=== PATIENT | female | born 1950 | race Hispanic/Latino ===

== ENCOUNTER 2017-06-29 06:02 | Day surgery (SDC) | payer MEDICARE, OTHER ==
[2015-12-05 16:20] VITALS: PULSE 78
[2017-06-28 08:41] VITALS: BMI 23.0
[2017-06-29] MEDS ORDERED: Phenylephrine 10 mg/ml Inj ONE (06:23)
[2017-06-29] MEDS ORDERED: Lidocaine 2% Inj (20ml) ONE (06:23)
[2017-06-29] MEDS ORDERED: Iodixanol 320 MG/ML 200 ML BOTTLE IV ONE (06:24)
[2017-06-29] MEDS ORDERED: Nitroglycerin 50mg in D5W 0 MG/0 ML BOTTLE IV ONE (06:24)
[2017-06-29] MEDS ORDERED: Iohexol 350mgl/ml 50 ML ONE (06:24)
[2017-06-29] MEDS ORDERED: Iodixanol 320 MG/ML 100 ML BOTTLE IV ONE (06:24)
[2017-06-29] MEDS ORDERED: Midazolam 2 MG/2 ML VIAL ONE ×2 (07:09→08:15)
[2017-06-29] MEDS ORDERED: Sodium Chloride 0.9% 1,000 ML IV SCH (09:00)
[2017-06-29 09:48] VITALS: TEMP 98.6
[2017-06-29 11:53] VITALS: BP 130/75; PULSE 82; RESP 18; O2SAT 92
--- NOTE | 2017-06-29 14:02 | CARDCATH ---
CARDIAC CATHETERIZATION REPORT PROCEDURE DATE: 06/29/2017 HISTORY: This is a 66-year-old woman with known coronary artery disease, status post prior bypass surgery, PCI, mitral regurgitation, and LV dysfunction who was advised catheterization after recent echocardiogram showed worsening LV function and severe mitral regurgitation. INDICATIONS: As above. PROCEDURES: 1. Selective left and right coronary angiography. 2. Left ventriculography. 3. Right and left heart catheterization. 4. Left subclavian arteriography. 5. Saphenous vein angiography. 6. Left internal mammary arteriography. 7. Right femoral arteriography. 8. AngioSeal deployment. FINDINGS: The right heart pressures were as follows; 1. The RV pressure was 60/6, the pulmonary artery pressure was 60/25 with a pulmonary capillary wedge pressure of 14. The cardiac output by thermodilution method was 3.0 liters per minute with cardiac index of 1.8 liters per minute per m2. 2. The aortic pressure was 110/70 with left ventricular pressure of 110/15. CORONARY ANGIOGRAPHY: 1. The left mainstem had a long 50% stenosis. 2. The left anterior descending artery is occluded proximally. 3. First diagonal branch had mild diffuse disease and was [id number] size vessel. 4. Ramus branch was occluded proximally. 5. The left circumflex artery was occluded proximally as well. 6. The right coronary artery was subtotally occluded in the midportion with evidence of faint retrograde filling. 7. The saphenous vein graft to the right coronary artery was large and patent. These had minimal irregularities within the graft. The distal vessel was large and supplied the majority of the inferolateral wall. There was no evidence of significant disease in the distal [place] vessel. 8. The saphenous vein graft to the obtuse marginal branch was noted to be occluded and was not selectively injected. 9. The left internal mammary artery to the LAD was patent with good distal run off. The [place] LAD and diagonal branches had evidence of moderate diffuse disease distally. 10. The left subclavian artery had been visualized angiographically at the site of the previously placed stent. There was mild 20% in-stent restenosis noted. LEFT VENTRICULOGRAPHY: Left ventriculogram was performed with hand injection in the MEJIA projection. This revealed moderately severe LV systolic dysfunction with ejection fraction of 30%. Mitral regurgitation appeared to be severe. There is no aortic valve gradient noted on catheter pullback. RIGHT FEMORAL ARTERIOGRAPHY: Right femoral arteriogram was performed in the MEJIA projection. This revealed evidence of mild diffuse disease with appropriate level for arterial puncture. The puncture site was then closed with deployment of an AngioSeal device. CONCLUSION: 1. Moderately elevated pulmonary artery pressures. 2. Severe three vessel coronary artery disease. 3. Occluded obtuse marginal graft. 4. Patent SIEGEL to LAD and patent vein graft to the RCA. 5. Severe LV systolic dysfunction. 6. Severe mitral regurgitation. RECOMMENDATIONS: Continue medical therapy for her coronary artery disease and LV dysfunction is advised. Given her severity of LV dysfunction placement of prophylactic ICD will be planned. Given her pulmonary artery pressures and severe mitral regurgitation consideration may be given to Mitraclip placement if anatomically appropriate. Smoking abstinence was encouraged. Ganesh Martell MD cc: Diogo Gaines MD
--- NOTE | 2017-06-29 16:06 | CARD ---
APPROVED REPORT EKG Measurement Heart [id number] <Conclusion> Sinus rhythm with occasional premature ventricular complexes Possible Left atrial enlargement Left axis deviation Nonspecific intraventricular block T wave abnormality, consider lateral ischemia
== END 2017-06-29 13:00 | disposition home or self-care (01) ==
LOC: CATH 06:02
PROVIDERS: ATTEND Internal Medicine Cardiovascular Disease
DX: I25.10 Atherosclerotic heart disease of native coronary artery without angina pectoris (principal); I34.0 Nonrheumatic mitral (valve) insufficiency; T82.858A Stenosis of other vascular prosthetic devices, implants and grafts, initial encounter; Y83.2 Surgical operation with anastomosis, bypass or graft as the cause of abnormal reaction of the patient, or of later complication, without mention of misadventure at the time of the procedure

== ENCOUNTER 2018-04-25 07:58 | Emergency (ER) | payer MEDICARE, OTHER ==
[2018-04-25 07:59] VITALS: PULSE 78
[2018-04-25 08:14] VITALS: BMI 24.1
[2018-04-25 08:16] VITALS: RESP 18
[2018-04-25] MEDS ORDERED: TDAP Vaccine 0.5 mL Syr IM ONE (08:53)
--- NOTE | 2018-04-25 08:53 | ED PDOC ---
Arrival/HPI - General Chief Complaint: GI Problem Time Seen by Provider: 04/25/18 08:30 Historian: Patient - History of Present Illness Narrative History of Present Illness (Text): 04/25/18 08:47 A 67 year old female, whose past medical history includes CABG, cardiac stents x 3-4, defibrillator left-side chest, hypertension, COPD, and cholecystectomy, presents to the emergency department complaining of nausea, vomiting, dizziness , generalized weakness, and recent syncopal episode. She explains she has been experiencing nausea/vomiting. 2 days ago, patient was at home, and when she got up from her couch, she began to feel dizzy and had an unwitnessed fall/syncopal episode. She later awoke to having injured right-side of her head from breaking her glasses s/p fall. Patient reports 03/02/18 she was diagnosed with shingles to right-side chest/back, and was prescribed antibiotics which she has finished but due to post herpetic neuralgia she was recently started on, Tegretol, and Tramadol. States no longer on shingles abx. She notes also experiencing chills, bloody stool (when wiping), central abdominal pain (has had for a long while), and leg swelling (baseline). Mentions she was meant to follow-up with Dr. Whitney for evaluation of abdominal pain, however had to cancel due to shingles. Patient denies any dysuria, fever, or any other complaints at this time. Also, patient admits to having history of smoking, however denies any EtOH abuse. Denies history of diabetes. She also states currently takes plavix, however denies taking any Coumadin/Warfarin. PMD: Dr. Gaines Piano Assembler: Dr. Borja 04/25/18 13:00 04/25/18 13:01 Time/Duration: < week (2 days) Symptom Onset: Sudden Symptom Course: Unchanged Past Medical History - Provider Review Nursing Documentation Reviewed: Yes - Infectious Disease Hx of Infectious Diseases: None - Tetanus Immunization Tetanus Immunization: Unknown - Reproductive Menopause: Yes - Cardiac Hx Hypertension: Yes Hx Pacemaker: Yes (with defib.) - Pulmonary Hx Respiratory Disorders: Yes (SMOKING 8-10 CIG/DAY) Hx Chronic Obstructive Pulmonary Disease (COPD): Yes - Neurological Hx Paralysis: No - HEENT Hx HEENT Disorder: Yes Hx Cataracts: Yes (L) - Renal Hx Renal Disorder: No - Endocrine/Metabolic Hx Endocrine Disorders: No - Hematological/Oncological Hx Blood Transfusions: No Hx Blood Transfusion Reaction: No - Integumentary Hx Dermatological Disorder: No Other/Comment: LEFT LEG EDEMA +2 AND SCARRING FROM TRIPLE BYPASS. LEFT BIG TOE WITH CHARLEEN."BALLET TOE" - Musculoskeletal/Rheumatological Hx Musculoskeletal Disorders: No - Gastrointestinal Hx Gastrointestinal Disorders: Yes Hx Gall Bladder Disease: Yes (CHOLECYSTECTOMY) Hx Gastroesophageal Reflux: Yes - Genitourinary/Gynecological Hx Genitourinary Disorders: No - Psychiatric Hx Substance Use: No - Surgical History Hx Open Heart Surgery: Yes Other/Comment: pacemaker with defib. - Anesthesia Hx Anesthesia Reactions: No Hx Malignant Hyperthermia: No - Suicidal Assessment Feels Threatened In Home Enviroment: No Family/Social History - Physician Review Nursing Documentation Reviewed: Yes Family/Social History: Unknown Family HX Smoking Status: Current Some Days Smoker Hx Alcohol Use: No Hx Substance Use: No Hx Substance Use Treatment: (0.5 ppd) Allergies/Home Meds Allergies/Adverse Reactions: Allergies codeine Adverse Reaction (Verified 12/05/15 22:35) VOMITING Home Medications: Home Meds Medication Instructions Recorded Confirmed Alprazolam [Xanax] 0.25 mg PO BID 08/19/12 04/25/18 Aspirin [Aspir 81] 81 mg PO QPM 08/19/12 04/25/18 Carvedilol [Coreg] 6.25 mg PO BID 08/19/12 04/25/18 Clopidogrel [Plavix] 75 mg PO QAM 07/29/15 04/25/18 Atorvastatin [Lipitor] 80 mg PO DAILY 10/24/15 04/25/18 Digoxin [Lanoxin] 0.125 mcg PO QPM 10/24/15 04/25/18 Isosorbide Mononitrate [Imdur] 60 mg PO QAM 10/24/15 04/25/18 Omeprazole [Prilosec] 20 mg PO QAM 10/24/15 04/25/18 Venlafaxine [Effexor] 37.5 mg PO QAM 10/24/15 04/25/18 Lasix 40 mg PO DAILY 06/29/17 04/25/18 Sacubitril/Valsartan [Entresto 49 1 tab PO BID 04/25/18 04/25/18 mg-51 mg] Review of Systems - Review of Systems Constitutional: Night Sweats, Other (generalized weakness). absent: Fevers Eyes: Normal ENT: Normal Respiratory: Normal Cardiovascular: Chest Pain (right-side chest s/p shingles location), Syncope (2 days ago after unwitnessed fall.) Gastrointestinal: Abdominal Pain, Stool Changes (bloody stool (when wiping)), Nausea, Vomiting. absent: Diarrhea Genitourinary Female: absent: Dysuria Musculoskeletal: Back Pain (right side upper back pain s/p shingles location) Skin: Normal Neurological: Dizziness Endocrine: Normal Hemo/Lymphatic: Normal Psychiatric: Normal Physical Exam Vital Signs Reviewed: Yes Vital Signs Temp Pulse Resp BP Pulse Ox 04/25/18 12:36 97.9 F 84 18 150/70 95 04/25/18 12:34 97.9 F 84 18 157/70 H 95 04/25/18 10:45 86 18 143/69 94 L 04/25/18 07:59 97.6 F 88 18 147/76 98 Temperature: Afebrile Blood Pressure: Normal Pulse: Regular Respiratory Rate: Normal Appearance: Positive for: Well-Appearing Pain Distress: None Mental Status: Positive for: Alert and Oriented X 3 - Systems Exam Head: Present: Atraumatic, Normocephalic Pupils: Present: PERRL Extroacular Muscles: Present: EOMI Conjunctiva: Present: Normal Respiratory/Chest: Present: Clear to Auscultation, Good Air Exchange. No: Respiratory Distress, Accessory Muscle Use Cardiovascular: Present: Regular Rate and Rhythm, Normal S1, S2. No: Murmurs Abdomen: Present: Tenderness (epigastric region). No: Rebound, Guarding Upper Extremity: Present: Normal Inspection. No: Cyanosis, Edema Lower Extremity: Present: Edema (+1), Swelling (bilaterally) Neurological: Present: GCS=15, CN II-XII Intact, Speech Normal Skin: Present: Warm, Dry, Normal Color. No: Rashes Psychiatric: Present: Alert, Oriented x 3, Normal Insight, Normal Concentration Medical Decision Making ED Course and Treatment: 04/25/18 08:51 Impression: 67 year old female with nausea, vomiting, dizziness, generalized weakness, and recent syncopal episode. Physical exam shows epigastric tenderness , no guarding/rebound; bilateral lower extremity swelling +1 monalisa; normal neurological exam; no other acute findings on examination. Plan: -- Abd/Pelvis CT -- Cervical Spinal CT -- Head CT -- Chest X-ray -- Labs -- Zofran -- IV Fluids -- Boostrix Vaccine -- Urinalysis -- Reassess and disposition Prior Visits: Notes and results from previous visits were reviewed. Patient was last seen in the emergency department on 12/05/2015 for dyspnea on exertion. Patient was admitted for congestive heart failure. Progress Notes: EKG: Ordered, reviewed, and independently interpreted the EKG. Rate : 93 BPM Rhythm : NSR Interpretation : PVCs, No STEMI, No ST-segment elevations or depressions, no T- wave inversions, normal intervals. Comparison : No previous EKG for comparison. 04/25/2018 10:[address] IMPRESSION: No acute findings. Dictator: Luis Terrazas MD 10:[address] IMPRESSION: No acute findings. Dictator: Luis Terrazas MD 04/25/2018 11:08 Abd/Pelvis CT IMPRESSION: No acute findings. Dictator: Luis Terrazas MD 04/25/2018 11:27 Chest X-ray IMPRESSION: Severe pulmonary venous congestion. No active pulmonary disease. Dictator: Michelle Garcia MD 04/25/18 12:24 Leaving Against Medical Advice (AMA): The patient is choosing to leave against medical advice. I have personally explained to the patient that choosing to do so may result in permanent bodily harm or . I have discussed at great length that without further evaluation and monitoring there may be unforeseen circumstances and/or deterioration causing permanent bodily harm or as a result of their choice. The patient is alert, oriented, and shows the mental capacity to make clear decisions regarding the patients health care at this time. The patient continues to wish to leave against medical advice. In light of the patients decision to leave against medical advice, follow-up has been arranged and the patient is aware of the importance to following up as instructed. The patient has been advised that they should return to the emergency room immediately if they change their mind at any time, or if their condition begins to change or worsen in any way. - Lab Interpretations Lab Results: 04/25/18 09:10 04/25/18 09:10 Lab Results 04/25/18 11:20: Urine Color Yellow, Urine Appearance Clear, Urine pH 6.0, Ur Specific [place] >= 1.030, Urine Protein 100 H, Urine Glucose (UA) Negative, Urine Ketones 15 H, Urine Blood Large H, Urine Nitrate Negative, Urine Bilirubin Small H, Urine Urobilinogen 0.2, Ur Leukocyte Esterase Negative, Urine RBC 25 - 30, Urine WBC 1 - 3, Ur Epithelial Cells Many, Amorphous Sediment Few, Urine Bacteria Many, Urine Other Uyeast 04/25/18 09:10: Digoxin 0.4 L 04/25/18 09:10: TSH 3rd Generation 1.38 04/25/18 09:10: Sodium 142, Potassium 3.7, Chloride 105, Carbon Dioxide 22, Anion Gap 19, BUN 17, Creatinine 0.9, Est GFR ( Amer) > 60, Est GFR (Non- Af Amer) > 60, Random Glucose 125 H, Calcium 9.5, Magnesium 2.0, Total Bilirubin 0.8, AST 16, ALT 16, Alkaline Phosphatase 96, Troponin I < 0.01, NT- Pro-B Natriuret Pep 9350 H, Total Protein 8.1, Albumin 4.4, Globulin 3.7, Albumin/Globulin Ratio 1.2, Lipase 67 04/25/18 09:10: PT 13.0 H, INR 1.13, APTT 29.4 04/25/18 09:10: WBC 10.3 D, RBC 4.34, Hgb 12.4, Hct 37.5, MCV 86.4, MCH 28.6, MCHC 33.1, RDW 16.5 H, Plt Count 178, MPV 10.4, Gran % 85.3 H, Lymph % (Auto) 9.2 L, Nelson % (Auto) 5.4, Eos % (Auto) 0.0 L, Baso % (Auto) 0.1, Gran # 8.79 H, Lymph # (Auto) 1.0 L, Nelson # (Auto) 0.6, Eos # (Auto) 0.0, Baso # (Auto) 0.01 I have reviewed the lab results: Yes - RAD Interpretation Radiology Orders: 04/25/18 08:51 CERVICAL SPINE W/O CONTRAST [CT] Stat HEAD W/O CONTRAST [CT] Stat CHEST TWO VIEWS (PA/LAT) [RAD] Stat 04/25/18 08:54 ABD & PELVIS IV CONTRAST ONLY [CT] Stat - Medication Orders Current Medication Orders: Discontinued Medications Sodium Chloride (Sodium Chloride 0.9%) 250 mls @ 30 mls/hr IV .[id number] JUDE Last Admin: 04/25/18 09:07 Dose: 30 mls/hr eMAR Start Stop Document 04/25/18 09:07 SRE (Rec: 04/25/18 09:07 SRE [id number]) Intravenous Solution Start Date 04/25/18 Start Time 09:07 End Date 04/25/18 End time 10:10 Total Infusion Time 63 Ondansetron HCl (Zofran Inj) 4 mg IVP STAT STA Stop: 04/25/18 08:54 Last Admin: 04/25/18 09:07 Dose: 4 mg IVP Administration Document 04/25/18 09:07 SRE (Rec: 04/25/18 09:07 SRE [id number]) Charges for Administration # of IVP Administrations 1 Tetanus/Reduced Diphtheria/Acell Pertussis (Boostrix Vaccine Inj) 0.5 ml IM .ONCE ONE Stop: 04/25/18 08:54 Last Admin: 04/25/18 09:07 Dose: 0.5 ml MAR Immunization Data Document 04/25/18 09:07 SRE (Rec: 04/25/18 09:08 SRE [id number]) Immunization Data Vaccine Information Sheet Given Yes Immunization Registry Document 04/25/18 09:07 SRE (Rec: 04/25/18 09:08 SRE [id number]) Immunization Registry Consent Date 04/25/18 - Scribe Statement The provider has reviewed the documentation as recorded by the Telma Prado Provider Scribe Attestation: All medical record entries made by the Scribfacundo were at my direction and personally dictated by me. I have reviewed the chart and agree that the record accurately reflects my personal performance of the history, physical exam, medical decision making, and the department course for this patient. I have also personally directed, reviewed, and agree with the discharge instructions and disposition. Disposition/Present on Arrival - Present on Arrival Any Indicators Present on Arrival: No History of DVT/PE: No History of Uncontrolled Diabetes: No Urinary Catheter: No History of Decub. Ulcer: No History Surgical Site Infection Following: None - Disposition Have Diagnosis and Disposition been Completed?: Yes Diagnosis: Syncope Disposition: AGAINST MEDICAL ADVICE Disposition Time: 11:30 Condition: GOOD Discharge Instructions (ExitCare): Syncope (Fainting), Syncope (ED) Additional Instructions: FOLLOW UP WITH YOUR PRIMARY DOCTOR AND COMBER TENDER GUANAKITO RETURN IF YOU CHANGE YOUR MIND CHAU KEITH, thank you for letting us take care of you today. Your provider was True Lyn and you were treated for WEAK. The emergency medical care you received today was directed at your acute symptoms. If you were prescribed any medication, please fill it and take as directed. It may take several days for your symptoms to resolve. Return to the Emergency Department if your symptoms worsen, do not improve, or if you have any other problems. Please contact your doctor or call one of the physicians/clinics you have been referred to that are listed on the Patient Visit Information form that is included in your discharge packet. Bring any paperwork you were given at discharge with you along with any medications you are taking to your follow up visit. Our treatment cannot replace ongoing medical care by a primary care provider outside of the emergency department. Thank you for allowing the [facility] team to be part of your care today. If you had an X-Ray or CT scan: A Radiologist will review the ED reading if any change in treatment is needed we will contact you. If you had a blood, urine, or wound culture: It will take several days for the results, if any change in treatment is needed we will contact you. If you had an STI test: It will take 48 hours for the results. Please call after 1 week if you have not heard back. Prescriptions: Ondansetron ODT [Zofran ODT] 4 mg PO Q12H PRN 2 Days #4 odt PRN Reason: Nausea/Vomiting Referrals: Diogo Gaines MD [Primary Care Provider] - Follow up with primary Brown Nicholas MD [Staff Provider] - Follow up with primary Forms: [email or web address] (Lithuanian)
[2018-04-25] MEDS ORDERED: Sodium Chloride 0.9% 250 ML IV SCH (09:00)
[2018-04-25 09:24] LABS: BASO # 0.01 K/mm3 (0.0-2.0); BASO % 0.1 % (0.0-3.0); GRAN # 8.79 (1.4-6.5); GRAN % 85.3 % (50.0-68.0); HEMOGLOBIN 12.4 g/dL (12.0-16.0); LYMPH % 9.2 % (22.0-35.0); MEAN CELL VOLUME 86.4 fl (80.0-105.0); MEAN CORPUSCULAR HEMOGLOBIN 28.6 pg (25.0-35.0); MEAN CORPUSCULAR HGB CONC 33.1 g/dl (31.0-37.0); MEAN PLATELET VOLUME 10.4 fl (7.0-11.0); MONO # 0.6 (0.1-0.6); MONO % 5.4 % (1.0-6.0); RBC 4.34 10^6/uL (3.5-6.1); RED CELL DISTRIBUTION WIDTH 16.5 % (11.5-14.5); WHITE BLOOD COUNT 10.3 10^3/ul (4.5-11.0)
[2018-04-25 09:35] LABS: ALB/GLOB RATIO 1.2 (1.1-1.8); ALBUMIN 4.4 g/dL (3.0-4.8); ALT/SGPT 16 U/L (7-56); AST/SGOT 16 U/L (14-36); BLOOD UREA NITROGEN 17 mg/dL (7-21); CALCIUM 9.5 mg/dL (8.4-10.5); GFR AFRICAN-AMERICAN > 60; GFR NON-AFRICAN AMERICAN > 60; LIPASE 67 U/L (23-300)
[2018-04-25 09:36] LABS: INR 1.13; PARTIAL THROMBOPLASTIN TIME 29.4 Seconds (25.1-36.5)
[2018-04-25 09:47] LABS: B-TYPE NATRIURETIC PEPTIDE 9350 pg/mL (0-450); TROPONIN I < 0.01 ng/mL
[2018-04-25] MEDS ORDERED: Iohexol 350 MG/100 ML VIAL ONE (10:11)
--- NOTE | 2018-04-25 10:45 | CT ---
Date of service: 04/25/2018 PROCEDURE: CT HEAD WITHOUT CONTRAST. HISTORY: fall on plavix COMPARISON: None available. TECHNIQUE: Axial computed tomography images were obtained through the head/brain without intravenous contrast. Radiation dose: Total exam DLP = 904 mGy-cm. This CT exam was performed using one or more of the following dose reduction techniques: Automated exposure control, adjustment of the mA and/or kV according to patient size, and/or use of iterative reconstruction technique. FINDINGS: HEMORRHAGE: No intracranial hemorrhage. BRAIN: No mass effect or edema. No atrophy or chronic microvascular ischemic changes. VENTRICLES: Unremarkable. No hydrocephalus. CALVARIUM: Unremarkable. PARANASAL SINUSES: Unremarkable as visualized. No significant inflammatory changes. MASTOID AIR CELLS: Unremarkable as visualized. No inflammatory changes. OTHER FINDINGS: None. IMPRESSION: No acute findings
--- NOTE | 2018-04-25 10:56 | CT ---
Date of service: 04/25/2018 PROCEDURE: CT Cervical Spine without contrast HISTORY: fall on plavix COMPARISON: None available. TECHNIQUE: Axial computed tomography images were obtained of the cervical spine without the use of intravenous contrast. Coronal and sagittal reformatted images were created and reviewed. Radiation dose: Total exam DLP = 458 mGy-cm. This CT exam was performed using one or more of the following dose reduction techniques: Automated exposure control, adjustment of the mA and/or kV according to patient size, and/or use of iterative reconstruction technique. FINDINGS: VERTEBRAE: No fracture. Normal alignment. No destructive bony lesion. DISCS/SPINAL CANAL/NEURAL FORAMINA: No significant central canal or neural foraminal stenosis. There is disc degeneration at C5-6 and C6-7 with disc space narrowing and osteophytes. PARASPINAL SOFT TISSUES: Unremarkable. OTHER FINDINGS: None. IMPRESSION: No acute findings
--- NOTE | 2018-04-25 11:09 | CT ---
Date of service: 04/25/2018 PROCEDURE: CT Abdomen and Pelvis with contrast HISTORY: abd pain COMPARISON: None. TECHNIQUE: Contrast dose: 100 cc of Omni 350 Radiation dose: Total exam DLP = 436 mGy-cm. This CT exam was performed using one or more of the following dose reduction techniques: Automated exposure control, adjustment of the mA and/or kV according to patient size, and/or use of iterative reconstruction technique. FINDINGS: LOWER THORAX: Unremarkable. LIVER: Unremarkable. No gross lesion or ductal dilatation. GALLBLADDER AND BILE DUCTS: Unremarkable. PANCREAS: Unremarkable. No gross lesion or ductal dilatation. SPLEEN: Unremarkable. ADRENALS: Unremarkable. No mass. 11 mm nodule left adrenal gland KIDNEYS AND URETERS: There is some scarring and atrophy of the cortex in the left kidney. VASCULATURE: Unremarkable. No aortic aneurysm. BOWEL: Unremarkable. No obstruction. No gross mural thickening. Mild diverticulosis without diverticulitis. APPENDIX: Normal appendix. PERITONEUM: Unremarkable. No free fluid. No free air. LYMPH NODES: Unremarkable. No enlarged lymph nodes. BLADDER: Unremarkable. REPRODUCTIVE: Unremarkable. BONES: No acute fracture. OTHER FINDINGS: None. IMPRESSION: No acute findings
--- NOTE | 2018-04-25 11:30 | RAD ---
HISTORY: COMPARISON: 12/05/2015. TECHNIQUE: Chest PA and lateral FINDINGS: LINES AND TUBES: 12/05/2015 LUNG AND PLEURA: The lungs are well inflated. There is severe pulmonary venous congestion. Bibasilar atelectasis. No pleural effusion or pneumothorax. HEART AND MEDIASTINUM: Persistent mild cardiomegaly and prominent central vasculature. Stable position of left-sided pacemaker. The hilar and mediastinal contours are within normal limits. SKELETAL STRUCTURES: The bony structures are within normal limits for the patient's age. VISUALIZED UPPER ABDOMEN: Normal. OTHER FINDINGS: None. IMPRESSION: Severe pulmonary venous congestion. No active pulmonary disease.
[2018-04-25 11:39] LABS: URINE BILIRUBIN SMALL (NEGATIVE); URINE BLOOD LARGE (NEGATIVE); URINE GLUCOSE (UA) NEGATIVE (NEGATIVE); URINE LEUKOCYTE ESTERASE NEGATIVE Leu/uL (NEGATIVE); URINE PROTEIN 100 mg/dL (<30 mg/dL); URINE UROBILINOGEN 0.2 E.U./dL (<1 E.U./dL)
[2018-04-25 11:42] LABS: URINE APPEARANCE CLEAR (CLEAR); URINE COLOR YELLOW (YELLOW)
[2018-04-25 12:15] LABS: URINE AMORPHOUS SEDIMENT FEW; URINE BACTERIA MANY (NEG); URINE EPITHELIAL CELLS MANY /hpf (0-5); URINE RBC 25 - 30 /hpf (0-2)
[2018-04-25 12:35] VITALS: PULSE 84; TEMP 97.9; O2SAT 95
[2018-04-25 12:38] VITALS: BP 150/70
--- NOTE | 2018-04-25 21:01 | CARD ---
APPROVED REPORT Date of service: 04/25/2018 EKG Measurement Heart [id number] <Conclusion> Demand pacemaker, interpretation is based on intrinsic rhythm Sinus rhythm with occasional and consecutive premature ventricular complexes and fusion complexes Possible Left atrial enlargement Left axis deviation Nonspecific intraventricular block Nonspecific T wave abnormality Abnormal ECG
== END 2018-04-25 12:36 | disposition left against medical advice (07) ==
LOC: ED 07:58
DX: R55 Syncope and collapse (principal); I10 Essential (primary) hypertension; J44.9 Chronic obstructive pulmonary disease, unspecified; Z95.0 Presence of cardiac pacemaker; Z95.1 Presence of aortocoronary bypass graft; Z95.5 Presence of coronary angioplasty implant and graft; F17.210 Nicotine dependence, cigarettes, uncomplicated; Z23 Encounter for immunization
CPT/HCPCS: 70450; 71046; 72125; 74177; 80053; 80162; 81001; 83690; 83735; 83880; 84443; 84484; 85025; 85610; 85730; 90471; 90715; 93005; 96361; 96374; 99284; J2405; Q9967